=== PATIENT | male | born 2000 | race Caucasian/White ===

== ENCOUNTER 2019-03-24 04:04 | Emergency (ER) | payer SELFPAY ==
[~2019-03-24] VITALS: Ht 175.3 cm; Wt 64.6 kg
[2019-03-24 04:48] VITALS: BP 98/47; Ht 175.3 cm; Wt 64.6 kg
== END 2019-03-24 04:57 | disposition left against medical advice (07) ==
LOC: ED 04:04
DX: Z53.21 Procedure and treatment not carried out due to patient leaving prior to being seen by health care provider (principal)